=== PATIENT | female | born 1995 | race Caucasian/White ===

== ENCOUNTER 2016-07-29 16:51 | Emergency (ER) | payer OTHER ==
[2016-07-29 19:43] VITALS: BP 132/72
[2016-07-29] MEDS ORDERED: cefTRIAXone VIAL(*) 1,000 MG VIAL IM ONE (20:28)
--- NOTE | 2016-07-29 20:28 | UC ---
Complaint Female HPI - HPI Summary HPI Summary: Pt presents with c/o of vaginal itching and discharge. Pt reports having intercourse with a new partner on 07/25/16 and does report using a condom but does report concern for STD exposure. Pt c/o of thin, discharge and intravaginal itching and discomfort. Is concerned that she has a yeast infection. - History Of Current Complaint Chief Complaint: [facility]CGU Stated Complaint: PERSONAL Time Seen by Provider: 07/29/16 19:54 Hx Obtained From: Patient Hx Last Menstrual Period: 1 month ago ?: No Onset/Duration: Gradual Onset, Lasting Days Timing: Constant Severity Initially: Mild Severity Currently: Mild Character: Burning Aggravating Factor(s): Nothing Alleviating Factor(s): Nothing Associated Signs And Symptoms: Positive: Vaginal Discharge - "thin" - Allergies/Home Medications Allergies/Adverse Reactions: Allergies Allergy/AdvReac Type Severity Reaction Status Date / Time No Known Allergies Allergy Verified 02/08/16 00:24 PMH/Surg Hx/FS Hx/Imm Hx Previously Healthy: Yes Endocrine History Of: Denies: Diabetes Cardiovascular History Of: Denies: Hypertension GI/ History Of: Denies: Gastroesophageal Reflux - Surgical History Surgical History: None - Family History Known Family History: Positive: Other - Diverticulitis Negative: Cardiac Disease Family History: negative for family hisotry of cardiac disease - Social History Occupation: Student - at [employer] Alcohol Use: Weekly Substance Use Type: None Smoking Status (MU): Never Smoked Tobacco - Immunization History Most Recent Influenza Vaccination: doesn't always get Review of Systems Constitutional: Negative Skin: Negative Eyes: Negative ENT: Negative Respiratory: Negative Cardiovascular: Negative Gastrointestinal: Negative Genitourinary: Other - vaginal itching, vaginal discharge Motor: Negative Neurovascular: Negative Musculoskeletal: Negative Neurological: Negative Psychological: Negative All Other Systems Reviewed And Are Negative: Yes Physical Exam Triage Information Reviewed: Yes Appearance: Well-Appearing Vital Signs: Initial Vital Signs Temp 98.3 F 07/29/16 19:39 Pulse 78 07/29/16 19:39 Resp 18 07/29/16 19:39 BP 132/72 07/29/16 19:39 Pulse Ox 98 07/29/16 19:39 Vital Signs Reviewed: Yes Eye Exam: Normal Neck exam: Normal Respiratory Exam: Normal Cardiovascular Exam: Normal Abdominal Exam: Normal Abdomen Description: Positive: Other: - Thick yellow/grean clumped dischrg in vaginal vault, maloderous. Cervix, nonfriable no cervical motion tenderness Musculoskeletal Exam: Normal Neurological Exam: Normal Psychological Exam: Normal Skin Exam: Normal Complaint Female Dx - Course Course Of Treatment: I discussed with the pt the option to wait for the results of the STD testing or to be treated today empirically. The pt aske dto be treated to day. I discussed the risk factros for STD and recommended safe sex practices of condom use and partner STD status knowledge. Pt verbalized understanding and agreed to plan of care. - Differential Dx/Diagnosis Differential Diagnosis/HQI/PQRI: Sexually Transmitted Disease, Urinary Tract Infection Provider Diagnoses: vaginitis. STD exposure. vaginal candiasis-? Discharge - Discharge Plan Condition: Stable Disposition: HOME Prescriptions: Fluconazole 100 MG TAB* [Diflucan 100 MG TAB*] 100 mg PO ONCE #1 tab Patient Education Materials: Vaginitis (ED) Referrals: Karla Fairbanks MD [Primary Care Provider] - (Please follow up with your PCP or return to clinic as needed. )
[2016-07-29] MEDS ORDERED: Azithromycin TAB* 250 MG PO ONE (20:29)
[2016-07-29] MEDS ORDERED: Lidocaine 1%* 5 ML VIAL INJ ONE (20:46)
[2016-07-29] MEDS ORDERED: Lidocaine 1% MPF* 2 ML VIAL ONE (20:51)
[2016-07-29] MEDS ORDERED: cefTRIAXone VIAL(*) 250 MG VIAL IM ONE (20:57)
== END 2016-07-29 21:30 | disposition home or self-care (01) ==
LOC: UCEAST 16:51
DX: N76.0 Acute vaginitis (principal); Z20.2 Contact with and (suspected) exposure to infections with a predominantly sexual mode of transmission
CPT/HCPCS: 87480; 87491; 87510; 87591; 87661; 96372; 99212; A9270-GY; G0463; J0696